=== PATIENT | female | born 1950 | race Caucasian/White ===

== ENCOUNTER 2018-02-11 21:43 | Emergency (ER) | payer MEDICARE ==
[~2018-02-11] VITALS: Ht 170.2 cm; Wt 81.8 kg
[2018-02-11 21:58] VITALS: Ht 170.2 cm; Wt 81.8 kg
[2018-02-11] MEDS ORDERED: RIOMET500 MG/5 M (22:00)
[2018-02-11] MEDS ORDERED: NORVASC2.5 MG (22:00)
[2018-02-11] MEDS ORDERED: HYDRALAZINE HCL10 MG (22:00)
[2018-02-11] MEDS ORDERED: ZANTAC300 MG (22:01)
[2018-02-11] MEDS ORDERED: PROTONIX20 MG (22:01)
[2018-02-11] MEDS ORDERED: COREG 3.1253.125 MG (22:01)
[2018-02-11] MEDS ORDERED: LIPITOR20 MG (22:01)
[2018-02-12] MEDS ORDERED: KEFLEX500 MG PO (01:41)
[2018-02-12 01:55] VITALS: BP 142/75
== END 2018-02-12 01:55 | disposition home or self-care (01) ==
LOC: D.ER 21:43
DX: S61.217A Laceration without foreign body of left little finger without damage to nail, initial encounter (principal); W26.8XXA Contact with other sharp object(s), not elsewhere classified, initial encounter; Y93.89 Activity, other specified; Y92.019 Unspecified place in single-family (private) house as the place of occurrence of the external cause; E11.9 Type 2 diabetes mellitus without complications; I10 Essential (primary) hypertension